=== PATIENT | male | born 1965 | race Caucasian/White ===

== ENCOUNTER 2017-06-15 11:39 | Observation (INO) | payer OTHER ==
[2017-06-15] VITALS (24 sets, daily range): BP systolic 90–143; BP diastolic 50–87; PULSE 63–94; RESP 10–27; Ht 167.6 cm; Wt 92.9 kg
[~2017-06-15] VITALS: Ht 167.6 cm; Wt 92.9 kg
[~2017-06-15 11:39] MED LIST: ROCURONIUM 50 MG INJ ONE
[2017-06-15] MEDS ORDERED: HYDR-905 PO (12:31)
--- NOTE | 2017-06-15 14:19 | HPN ---
Date/Time of Note Date/Time of Note DATE: 06/15/17 TIME: 14:19 Interval H&P Admission Note Pt. seen H&P reviewed: No system changes ELOY MERCEDES Jun 15, 2017 14:19
[2017-06-15] MEDS ORDERED: PROPOFOL 20 ML ONE (14:41)
[2017-06-15] MEDS ORDERED: LIDOCAINE 1% (MDV) 20 ML INJ ONE (14:41)
[2017-06-15] MEDS ORDERED: MIDAZOLAM 1 MG/ML 2 ML INJ ONE (14:41)
[2017-06-15] MEDS ORDERED: CEFAZOLIN 1 GM INJ ONE (14:52)
[2017-06-15] MEDS ORDERED: DEXAMETHASONE 4 MG/ML 1 ML INJ ONE ×2 (14:53→19:15)
[2017-06-15] MEDS ORDERED: ONDANSETRON 4 MG INJ ONE (14:53)
[2017-06-15] MEDS ORDERED: POLYMYXIN/BACITRACIN 1L IRRIG ONE (14:58)
[2017-06-15] MEDS ORDERED: BUPIVACAINE 0.5% (SDV) 30 ML INJ ONE (14:58)
[2017-06-15] MEDS ORDERED: VANCOMYCIN 1 GM (PMX) 250 ML ONE (15:01)
[2017-06-15] MEDS ORDERED: HYDROmorphONE 2 MG/ML SYG ONE (17:21)
[2017-06-15] MEDS ORDERED: SUGAMMADEX SODIUM 200 MG/2 ML VIAL IV ONE (17:24)
--- NOTE | 2017-06-15 17:48 | OPPN ---
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
[2017-06-15] MEDS ORDERED: ACETAMINOPHEN 1000MG/100ML IV 100 ML IVPB ONE (18:00)
[2017-06-15] MEDS ORDERED: ONDANSETRON 4 MG INJ IV PRN (18:00)
[2017-06-15] MEDS: HYDROmorphONE (0.2 MG/ML) 10ML SYG IV PRN ×2 (18:12→18:28)
[2017-06-15] MEDS ORDERED: ROPIVACAINE 0.5 % 30 ML VIAL ONE (19:15)
--- NOTE | 2017-06-15 20:01 | OPR ---
DATE OF OPERATION: 06/15/2017 SURGEON: Ranulfo Cruz MD ANESTHESIA: General. PREOPERATIVE DIAGNOSES: 1. Left wrist link carpal osteoarthritis. 2. 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 3. Left small finger chronic carpometacarpal fracture dislocation with osteoarthritis. 4. Left carpal tunnel syndrome. POSTOPERATIVE DIAGNOSES: 1. Left wrist link carpal osteoarthritis. 2. 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 3. Left small finger chronic carpometacarpal fracture dislocation with osteoarthritis. 4. Left carpal tunnel syndrome. PROCEDURE PERFORMED: 1. Left total wrist fusion with bone allograft, plate and screw fixation. 2. Left ring finger carpometacarpal joint fusion and open treatment of left ring finger carpometacarpal joint chronic dislocation. 3. Left small finger carpometacarpal joint fusion and open treatment of left small finger carpometacarpal joint chronic dislocation. 4. Left carpal tunnel release, open. OPERATIVE FINDINGS: 1. Significant deformity throughout the left hand including radiocarpal, midcarpal, and CMC joints with posttraumatic deformity and osteoarthritis at the radiocarpal, midcarpal joint with collapse as well as osteoarthritis and chronic dislocation of the ring finger and small finger carpometacarpal joints. 2. Compression of the median nerve at the carpal tunnel. INDICATION FOR PROCEDURE: A 51-year-old male with a remote history of trauma to the left hand. He had surgery at that time, but recently developed significant increase in pain and swelling. X-ray imaging showed link carpal osteoarthritis with collapse as well as deformity and subluxation/dislocation at the ring finger and small finger CMC joints. He also had carpal tunnel symptoms. We discussed the options and he elected to proceed with surgical intervention, understanding the risks and benefits. He understood that total wrist fusion meant inability to flex or extend the wrist. He elected to proceed, understanding the risks and benefits. OPERATIVE PROCEDURE: The patient was seen in the preoperative area and all further questions were answered. Again, he gave informed consent understanding risks and benefits. He was taken to the operative suite and placed in the supine position. He was placed under general anesthesia and tourniquet placed on left upper extremity. Left upper extremity was prepped with ChloraPrep stick and draped in usual sterile fashion. Ancef 2 g IV as well as vancomycin 1 g IV was given. Esmarch bandage was used to exsanguinate the extremity. Tourniquet inflated to 250 mmHg. Attention was 1st turned to the carpal tunnel release and a 2 cm incision at the base of the palm was utilized with sharp dissection carried down through skin and subcutaneous tissue. The palmar aponeurosis was identified and it was incised along its ulnar border. Retractors were deepened and the transverse carpal ligament was identified and was incised along its ulnar border from its most proximal to distal extent under direct visualization. The wound was copiously irrigated and skin closed with 4-0 nylon. Attention was then turned to the dorsum of the wrist and the previous surgical incision was utilized with sharp dissection carried down through skin and subcutaneous tissue. There was only scar tissue present over the extensor tendons and no extensor retinaculum present. The 4th dorsal compartment was retracted ulnarly superficial to the wrist capsule. The 2nd and 3rd dorsal compartments were identified and the sheath of the 2nd and 3rd compartment was incised and these tendons were retracted radially. The capsule was incised along its midline from the proximal aspect of Christopher's tubercle to the middle finger metacarpal. A full thickness capsular layer was reflected both radially and ulnarly. There was significant deformity and arthritis throughout the wrist as well as carpal collapse. A [employer] wrist fusion plate was fashioned to the operative site and fit nicely. The fusion site was prepared with rongeur as well as a curette to remove any soft tissue, as well as cartilage that was remaining. Once there was good cancellous bleeding bone, the deformity was reduced and the [employer] wrist fusion plate was placed from the middle finger metacarpal to the dorsal distal radius. Cortical and locking screws were placed and there was excellent stability of the wrist. Attention was then turned to the ring finger and small finger CMC joints, and the wrist capsule was elevated off of this joint and joints were visualized. There was deformity as well as osteoarthritis present and any soft tissue was rongeured from the joint itself and the joint was prepared with curette to good bleeding bone. A [employer] 1.5 mm plate and 2.3 mm screws were used to secure the fusion across the ring finger metacarpal, as well as across the small finger metacarpal to achieve stabilization of the small finger and ring finger CMC joints. A 5 cc volume of Yasmine bone allograft with growth factors and stem cells was placed into the fusion site at the small finger CMC, ring finger CMC, and wrist fusion site. X-ray imaging confirmed appropriate hardware placement and bony alignment. Of note, prior to placing the Yasmine bone graft, the wound was copiously irrigated with 1 L of saline. The wrist capsule was closed and there was no extensor retinaculum to close. After closure of the wrist capsule with 3- 0 Monocryl, the deep dermal layer was closed with 3-0 Monocryl and skin with 4-0 nylon. Tourniquet was deflated after total of 124 minutes and the patient was awakened from anesthesia. He was taken to the postoperative suite in stable condition. He tolerated the procedure well with no complications. The patient was placed in a sterile bandage with a short arm metacarpal cuffed splint in the operating room. ESTIMATED BLOOD LOSS: 5 cc. SPECIMENS: None. COUNTS: Sponge, instrument, needle counts correct. TOURNIQUET TIME: 124 minutes. CONDITION ON DISCHARGE: Stable. Dictated By: Ranulfo Cruz MD /ebony/hanny /Document#: [id number] CECIL
--- NOTE | 2017-06-15 21:32 | RADRPT ---
PROCEDURE: Intraoperative imaging of the left wrist with fluoroscopy. CLINICAL INDICATION: Left wrist pain. Intraoperative. TECHNIQUE: Images of the left wrist were obtained in the operating room with an image intensifier. No radiologist was in attendance. Fluoroscopy time is 7 seconds and 10 images were obtained. COMPARISON: No prior study is available for comparison. FINDINGS: Images demonstrate fusion of the wrist with 3 plates and multiple screws. IMPRESSION: 1. Intraoperative imaging of the left wrist. RPTAT: QQ .Kyle Neville MD, MD Date Time Electronically viewed and signed by .Kyle Neville MD, on 06/15/2017 21:31 .R/
[2017-06-15] MEDS ORDERED: HYDROmorphONE 0.5 MG/0.5 ML SYG IV PRN (22:00)
== END 2017-06-15 22:20 | disposition home or self-care (01) ==
LOC: SUR 11:39 → SDS 11:39 → MS1 21:57 → SUR 21:57
PROVIDERS: ADMIT Orthopaedic Surgery Hand Surgery; ATTEND Orthopaedic Surgery Hand Surgery
DX: M19.132 Post-traumatic osteoarthritis, left wrist (principal); M24.442 Recurrent dislocation, left hand; G56.02 Carpal tunnel syndrome, left upper limb
CPT/HCPCS: 25800; 26843; 64721; 73110; J0131; J0690; J1100; J1170; J2250; J2405; J3370; Z7500; Z7512; Z7610; G0378; J2795

== ENCOUNTER 2018-01-24 12:04 | Day surgery (SDC) | END 2018-01-24 19:54 | disposition home or self-care (01) ==